=== PATIENT | male | born 1995 | race Caucasian/White ===

== ENCOUNTER 2023-04-06 12:10 | Emergency (ER) | payer BC, OTHER ==
[~2023-04-06] VITALS: Ht 182.9 cm; Wt 74.8 kg
[2023-04-06 12:25] VITALS: BP 132/100; PULSE 102; PULSE 131; RESP 16; TEMP 96.5; O2SAT 100
[2023-04-06] MEDS ORDERED: ONDANSETRON 4 MG ODT PO ONE (14:50)
[2023-04-06] MEDS ORDERED: ONDA-188 SL (15:28)
[2023-04-06] MEDS ORDERED: ATA25 PO (15:28)
[2023-04-06 15:39] VITALS: BP 135/88; PULSE 88; RESP 16; TEMP 98; O2SAT 100
[2023-04-06 15:49] LABS: FLU A ANTIGEN negative (NEGATIVE); FLU B ANTIGEN negative (NEGATIVE)
== END 2023-04-06 15:39 | disposition home or self-care (01) ==
LOC: MED 12:10
DX: R11.2 Nausea with vomiting, unspecified (principal); F43.9 Reaction to severe stress, unspecified; R03.0 Elevated blood-pressure reading, without diagnosis of hypertension; Z20.822 Contact with and (suspected) exposure to COVID-19; Z79.899 Other long term (current) drug therapy
CPT/HCPCS: 87426; 87804; 99283; Q0162